=== PATIENT | female | born 1975 | race American Indian/Alaskan Native ===

== ENCOUNTER 2018-05-17 12:17 | Emergency (ER) | payer OTHER ==
[2018-05-17 12:35] VITALS: BP 128/81; PULSE 76; RESP 18; O2SAT 100
--- NOTE | 2018-05-17 12:40 | ED PDOC ---
HPI: CCC, URI, Sore Throat Time Seen by Provider: 05/17/18 12:38 Chief Complaint (Nursing): ENT Problem Chief Complaint (Provider): sore throat History Per: Patient History/Exam Limitations: no limitations Onset/Duration Of Symptoms: Days (x2) Current Symptoms Are (Timing): Still Present Additional Complaint(s): 42 y/o female with a PMHx of HTN presenting for evaluation of throat pain x2 days. Patient states she began to feel sick yesterday and describes a burning sensation in her throat. She reports body aches and headache, but states she did not take her temperature. Patient's son was treated for strep last week. PMD: Non-[facility] provider in [place] Past Medical History Reviewed: Historical Data, Nursing Documentation, Vital Signs Vital Signs: Last Vital Signs Temp 98 F 05/17/18 13:13 Pulse 76 05/17/18 12:32 Resp 18 05/17/18 12:32 BP 128/81 05/17/18 12:32 Pulse Ox 100 05/17/18 13:02 - Medical History PMH: HTN - Surgical History Surgical History: (x1) - Family History Family History: States: No Known Family Hx - Living Arrangements Living Arrangements: With Family - Social History Current smoker - smoking cessation education provided: No Alcohol: None Drugs: Denies - Home Medications Home Medications: Ambulatory Orders Medication Instructions Recorded Amoxicillin/Clavulanate [Augmentin 1 tab PO BID #14 tab 05/17/18 875 MG-125 MG] - Allergies Allergies/Adverse Reactions: Allergies Allergy/AdvReac Type Severity Reaction Status Date / Time No Known Allergies Allergy Verified 05/17/18 12:31 Review of Systems ROS Statement: Except As Marked, All Systems Reviewed And Found Negative Constitutional: Positive for: Other (body aches). Negative for: Fever ENT: Positive for: Throat Pain, Throat Swelling Respiratory: Negative for: Cough Gastrointestinal: Negative for: Nausea, Vomiting Neurological: Positive for: Headache. Negative for: Dizziness Physical Exam - Reviewed Nursing Documentation Reviewed: Yes Vital Signs Reviewed: Yes - Physical Exam Appears: Positive for: Well, Non-toxic, No Acute Distress Skin: Positive for: Normal Color. Negative for: Rash Eye Exam: Positive for: Normal appearance ENT: Positive for: Pharyngeal Erythema, Tonsillar Exudate (bilateral), Tonsillar Swelling (bilateral). Negative for: Nasal Congestion Cardiovascular/Chest: Positive for: Regular Rate, Rhythm Respiratory: Positive for: Normal Breath Sounds. Negative for: Wheezing, Respiratory Distress Neurologic/Psych: Positive for: Alert, Oriented - Laboratory Results Urine POC: Negative (test declined, patient is certain she is not ) - ECG O2 Sat by Pulse Oximetry: 100 (RA) Pulse Ox Interpretation: Normal Medical Decision Making Medical Decision Makin:40 Impression: 42 y/o female with tonsillitis Plan: Patient will be discharged with Rx for Augmentin and advised to take OTC NSAIDs for pain. Instructed to follow up with PMD in 2-3 days. Return for any new or worsening symptoms. Scribe Attestation: Documented by Ranjit Lux, acting as a scribe for Noa Pablo PA-C. Provider Scribe Attestation: All medical record entries made by the scribe were at my direction and personally dictated by me. I have reviewed the chart and agree that the record accurately reflects my personal performance of the history, physical exam, medical decision making, and the department course for this patient. I have also personally directed, reviewed, and agree with the discharge instructions and disposition. Disposition - Clinical Impression Clinical Impression: Tonsillitis - Patient ED Disposition Is Patient to be Admitted: Yes Counseled Patient/Family Regarding: Diagnosis, Need For Followup, Rx Given - Disposition Referrals: [facility] [Outside] Disposition: Routine/Home Disposition Time: 12:39 Condition: STABLE Additional Instructions: Take rx meds as directed. Over the counter advil for pain as needed. Follow up in 2-3 days with primary care doctor. Prescriptions: Amoxicillin/Clavulanate [Augmentin 875 MG-125 MG] 1 tab PO BID #14 tab Instructions: Sore Throat, Adult (DC) Forms: [employer] (Burmese)
[2018-05-17 13:14] VITALS: TEMP 98
== END 2018-05-17 13:13 | disposition home or self-care (01) ==
LOC: H.ER 12:17
DX: J03.90 Acute tonsillitis, unspecified (principal); I10 Essential (primary) hypertension